=== PATIENT | female | born 1955 | race Caucasian/White ===

== ENCOUNTER → 2016-11-15 | Outpatient (CLI) | payer BC ==
--- NOTE | 2016-11-15 11:33 | DIAGNOSTIC IMAGING REPORT ---
PROCEDURE: DEXA BONE DENSITY STUDY CLINICAL INDICATION: SCREENING COMPARISON: None. FINDINGS: LUMBAR SPINE: Bone mineral density 0.886 g/cm2, T score -1.5 osteopenia LEFT HIP: Bone mineral density 0.737 g/cm2, T score -1.7 osteopenia LEFT FEMORAL NECK: Bone mineral density 0.596 g/cm2, T score -2.3 osteopenia FRACTURE RISK CALCULATION ( when applicable): 10-year fracture risk of a major osteoporotic fracture 11 % and of a hip fracture 3% (T score greater or equal to -1.0 to: NORMAL) (T score from -1.1 to -2.4: OSTEOPENIA) (T score ess than or equal to -2.5: OSTEOPOROSIS) IMPRESSION: 1. Osteopenia spine hip and femoral neck with a 10-year fracture risk of 11% and a hip fracture risk of 3%
--- NOTE | 2016-11-21 10:42 | DIAGNOSTIC IMAGING REPORT ---
PROCEDURE: MG BILATERAL SCREENING W/CAD INDICATION: SCREENING TECHNIQUE: Bilateral CC and MLO digital views. COMPARISON: Prior studies not available at this time. FINDINGS: Computer-aided detection applied. Moderately dense. Occasional dystrophic calcifications. No suspicious mass, architectural distortion or suspicious microcalcifications. IMPRESSION: 1. Negative mammogram RESULT CODE: 0- Prior images needed. A. A negative report should not delay biopsy if a dominant or clinically suspicious mass is present. 10-15% of cancers are not identified by x-ray. B. A negative report may reinforce clinical impression. C. Adenosis and dense breasts may obscure an underlying neoplasm. D. False positive reports average 6-10%. E.. A yearly screening mammogram is recommended. A reminder letter will be scheduled.
== END ==
LOC: MAM SRH 10:30
DX: Z12.31 Encounter for screening mammogram for malignant neoplasm of breast (principal); M85.89 Other specified disorders of bone density and structure, multiple sites

== ENCOUNTER 2017-01-04 08:57 | Outpatient (CLI) | payer BC | END 2017-01-04 23:00 | LOC: LAB SRH 08:57 | DX: Z00.00 Encounter for general adult medical examination without abnormal findings (principal) | CPT/HCPCS: 90074; 90100; 92690; 95059 ==